=== PATIENT | male | born 1955 | race African-American/Black ===

== ENCOUNTER 2018-10-11 09:40 | Day surgery (SDC) | payer OTHER ==
[2018-10-08 08:34] VITALS: BMI 34.3
[2018-10-11] MEDS ORDERED: GLYCOPYRROLATE 0.2 MG/1 ML VIAL ONE (12:43)
[2018-10-11] MEDS ORDERED: MIDAZOLAM HCL 2 MG/2 ML SINGLE DOSE VIAL ONE (12:43)
[2018-10-11] MEDS ORDERED: DEXAMETHASONE SOD PHOSPHATE 4 MG/1 ML VIAL ONE (12:43)
[2018-10-11] MEDS ORDERED: PROPOFOL 20 ML ONE ×2 (12:46)
[2018-10-11] MEDS ORDERED: SUCCINYLCHOLINE CHLORIDE 200 MG/10 ML VIAL ONE (12:49)
--- NOTE | 2018-10-11 13:27 | OP ---
Operative Note - Note: Operative Date: 10/11/18 Pre-Operative Diagnosis: gross hematuria/urolithiasis Operation: cystoscopy/bilateral retrograde pyelogram Findings: no obstruction or significant filling defects noted/excellent bilateral drainage seen Post-Operative Diagnosis: Same as Pre-op Surgeon: Curtis Marcos Anesthesia: General
[2018-10-11] MEDS ORDERED: ONDANSETRON 4 MG/2 ML VIAL IVPUSH PRN (13:29)
[2018-10-11] MEDS ORDERED: oxyCODONE HCL 5 MG TABLET PO PRN (13:29)
[2018-10-11] MEDS ORDERED: LACTATED RINGERS SOLUTION 1,000 ML IV SCH (13:30)
[2018-10-11 16:42] VITALS: BP 144/83; PULSE 61; TEMP 98
--- NOTE | 2018-10-11 23:40 | OP ---
DATE OF OPERATION: 10/11/2018 PREOPERATIVE DIAGNOSIS: Gross hematuria, nephrolithiasis. POSTOPERATIVE DIAGNOSIS: Gross hematuria, nephrolithiasis. PROCEDURE: Cystoscopy and bilateral retrograde pyelogram. ATTENDING: Micha Marcos M.D. ANESTHESIA: General anesthesia. INDICATION: The patient has a history of right ureteral stone with gross hematuria. A diuretic renal scan revealed poor emptying of the left kidney. The patient is scheduled for bilateral retrograde pyelogram. Risks and benefits are explained to the patient. DESCRIPTION OF PROCEDURE: The patient was brought in the operating room, placed in a supine position on the operating room table. He was given general anesthesia and preoperative antibiotics. He was then placed in the dorsal lithotomy position prepped and draped in the usual sterile manner. Cystoscopy was performed. The bladder is inspected, and no evidence of neoplasm or stones is noted. An open-ended catheter was placed into the right ureteral orifice, and a retrogram pyelogram showed no evidence of urethral filling defects with adequate emptying of the bladder. The patient has a right renal stone which is noted on previous studies. The left side is then investigated. The open-ended catheter is placed in the left ureteral orifice and retrograde pyelogram performed is noted without evidence of obstruction. The case was concluded. The cystoscope removed. The disposition, the patient was to recovery room. No complications noted. MICHA ROJAS M.D. /[id number]
== END 2018-10-11 16:00 | disposition home or self-care (01) ==
LOC: JASU-SURG 09:40
PROVIDERS: ATTEND Urology
PROC: BT14YZZ Fluoroscopy of Kidneys, Ureters and Bladder using Other Contrast (ICD-10-PCS; principal; 2018-10-11 11:00)
DX: N20.0 Calculus of kidney (principal); R31.0 Gross hematuria
CPT/HCPCS: 76000-TC-FY; 94760

== ENCOUNTER 2018-11-01 07:12 | Day surgery (SDC) | payer OTHER ==
[2018-11-01 07:30] VITALS: BMI 34.3
[2018-11-01] MEDS ORDERED: MIDAZOLAM HCL 2 MG/2 ML SINGLE DOSE VIAL ONE ×2 (09:16)
--- NOTE | 2018-11-01 09:52 | OP ---
Operative Note - Note: Operative Date: 11/01/18 Pre-Operative Diagnosis: Right renal stone Operation: 4 mm upper pole Right renal stone Surgeon: Curtis Marcos Anesthesia: Fractional Estimated Blood Loss (mls): 0 Operative Report Dictated: Yes
[2018-11-01 10:55] VITALS: BP 128/70; PULSE 60; TEMP 98
--- NOTE | 2018-11-01 12:33 | OP ---
DATE OF OPERATION: 11/01/2018 PREOPERATIVE DIAGNOSIS: Right renal stone. POSTOPERATIVE DIAGNOSIS: Right renal stone. PROCEDURE: Right extracorporeal shock-wave lithotripsy. ATTENDING: Micha Rojas MD ANESTHESIA: Fractional. DESCRIPTION OF PROCEDURE: The patient was brought in the operating room and placed in a supine position on the operating room table. Ultrasonography and fluoroscopy were performed. A 4-mm right upper pole stone was identified. Anesthesia, preoperative antibiotics were then administered. Shock-wave lithotripsy was then performed. Then 2500 impulses at 17 J of power were administered to the stone under real time ultrasonography and fluoroscopy. Excellent fragmentation of the stone was noted. No complications were noted. DISPOSITION: To the recovery room. MICHA ROJAS M.D. [id number]
--- NOTE | 2018-11-01 17:54 | OP ---
DATE OF OPERATION: 11/01/2018 PREOPERATIVE DIAGNOSIS: Right renal stone. POSTOPERATIVE DIAGNOSIS: Right renal stone. PROCEDURE: Right extracorporeal shock wave lithotripsy. ATTENDING SURGEON: Micha Marcos MD ANESTHESIA: Fractional. OPERATION: As follows, the patient was brought into the operating room and placed in a supine position on the operating room table. Ultrasonography and fluoroscopy were performed. A 6-mm right upper pole stone was identified. At this point, anesthesia and preoperative antibiotics were then administered. Shock wave lithotripsy was then performed, 2500 impulses at 18 joules of power administered to the 6-mm stone. No complications were noted. DISPOSITION: The disposition of the patient was to the recovery room. MICHA ROJAS M.D. [id number]
== END 2018-11-01 10:55 | disposition home or self-care (01) ==
LOC: JASU-SURG 07:12
PROVIDERS: ATTEND Urology
PROC: 0TF3XZZ Fragmentation in Right Kidney Pelvis, External Approach (ICD-10-PCS; principal; 2018-11-01 08:45)
DX: N20.0 Calculus of kidney (principal)

== ENCOUNTER 2024-05-18 04:46 | Day surgery (SDC) | payer OTHER ==
[2024-05-17 09:57] VITALS: BMI 36.8
[2024-05-18] MEDS ORDERED: PROPOFOL 20 ML ONE ×2 (08:07→09:38)
[2024-05-18] MEDS ORDERED: GLYCOPYRROLATE 0.2 MG/1 ML VIAL ONE (08:07)
[2024-05-18] MEDS ORDERED: ALBUTEROL SO4 HFA INHALER IH ONE (08:07)
[2024-05-18] MEDS ORDERED: PROPOFOL 60 ML ONE ×2 (08:09→09:40)
[2024-05-18] MEDS ORDERED: MIDAZOLAM HCL 2 MG/2 ML SINGLE DOSE VIAL ONE (08:12)
[2024-05-18] MEDS ORDERED: ONDANSETRON 4 MG/2 ML VIAL IVPUSH PRN (08:46)
[2024-05-18] MEDS ORDERED: LACTATED RINGERS SOLUTION 1,000 ML IV SCH (09:00)
[2024-05-18] MEDS ORDERED: ROCURONIUM BROMIDE 50 MG/5 ML SYRINGE ONE (09:28)
[2024-05-18] MEDS ORDERED: SUGAMMADEX SODIUM 200 MG/2 ML VIAL ONE ×2 (09:35→10:17)
[2024-05-18] MEDS ORDERED: methylPREDNISolone NA SUCC 125 MG/2 ML VIAL ONE (10:45)
[2024-05-18] MEDS ORDERED: ALBUTEROL SO4 2.5/IPRATROPIUM 0.5 INH SOL 3 ML VIAL.NEB. NEB ONE (10:48)
[2024-05-18] MEDS: methylPREDNISolone NA SUCC 125 MG/2 ML VIAL IVPUSH ONE (10:52)
[2024-05-18] MEDS: ALBUTEROL SO4 2.5/IPRATROPIUM 0.5 INH SOL 3 ML VIAL.NEB. NEB ONE (10:53)
[2024-05-18 13:59] VITALS: BP 148/65; PULSE 69; RESP 20; TEMP 97.3
== END 2024-05-18 14:03 | disposition home or self-care (01) ==
LOC: JASU-SURG 04:46
PROVIDERS: ATTEND Internal Medicine
PROC: 0BBD8ZX Excision of Right Middle Lung Lobe, Via Natural or Artificial Opening Endoscopic, Diagnostic (ICD-10-PCS; principal; 2024-05-18 09:00)
DX: R91.1 Solitary pulmonary nodule (principal)
CPT/HCPCS: 71045-TC-FY; 76000-TC-FY; 88104; 88108; 88305-TC; 94640; 94760